=== PATIENT | female | born 1955 | race Caucasian/White ===

== ENCOUNTER → 2023-08-23 | Outpatient (CLI) | payer BC ==
[2023-08-23 22:37] VITALS: PULSE 68; RESP 20
[2023-08-23 23:00] VITALS: PULSE 72; RESP 16
[2023-08-23 23:30] VITALS: PULSE 70; RESP 16
[2023-08-24] VITALS (11 sets, daily range): PULSE 64–82; RESP 12–18
== END | disposition home or self-care (01) ==
LOC: SLP 20:38
PROVIDERS: ATTEND Internal Medicine
DX: R40.0 Somnolence (principal); F41.9 Anxiety disorder, unspecified; E66.9 Obesity, unspecified
CPT/HCPCS: 95810

== ENCOUNTER → 2023-08-30 | Outpatient (CLI) | payer BC ==
[2023-08-30 22:18] VITALS: PULSE 72; RESP 14
[2023-08-30 23:00] VITALS: PULSE 70; RESP 12
[2023-08-30 23:30] VITALS: PULSE 70; RESP 16
[2023-08-31] VITALS (11 sets, daily range): PULSE 20–80; RESP 12–18
== END | disposition home or self-care (01) ==
LOC: EDUNIT# 20:30 → SLP 21:00
PROVIDERS: ATTEND Internal Medicine
DX: G47.33 Obstructive sleep apnea (adult) (pediatric) (principal); G47.10 Hypersomnia, unspecified; R40.0 Somnolence
CPT/HCPCS: 95811